=== PATIENT | male | born 1945 | race Caucasian/White ===

== ENCOUNTER → 2018-08-05 | Outpatient (CLI) | payer MEDICARE, OTHER ==
--- NOTE | 2018-08-05 17:05 | Diagnostic Imaging Report ---
TECHNIQUE: Magnetic resonance imaging of the LEFT SHOULDER was performed WITHOUT injected contrast. HISTORY: Injury of muscle, left rotator cuff, pain COMPARISON: None available. FINDINGS: MUSCLES AND TENDONS: Rotator Cuff: Tendons: Supraspinatus and Infraspinatus: The supraspinatus is thickened with heterogeneously increased intrasubstance signal and a small focal low-grade intrasubstance tear of the distal fibers. Thickening and increased intrasubstance signal of the infraspinatus tendon with delamination extending to the myotendinous junction. Teres Minor: Intact Subscapularis: Complex intermediate grade partial-thickness tearing of the distal tendon without complete retraction. Muscles: No focal muscle atrophy. Biceps Tendon: Complex tearing at the biceps labral anchor, no normal tendon is visible within the joint or intertubercular groove, the tendon appears retracted to the level of the proximal humeral diaphysis. GLENOHUMERAL JOINT: Glenoid Labrum: Severe complex tearing of the superior labrum and to a lesser extent the inferior labrum. Articular Cartilage: No focal defect. Joint Fluid: A small nonspecific joint effusion with synovitis. ACROMIOCLAVICULAR JOINT: Moderate hypertrophic degenerative changes of the acromioclavicular joint. Trace effusion. BONE: The acromion is unremarkable. No focal or infiltrative bone marrow replacing abnormality. No acute fracture. SOFT TISSUES: Otherwise, unremarkable. IMPRESSION: 1. Supraspinatus and infraspinatus tendinosis with low-grade partial-thickness tearing. 2. Partial-thickness tearing of the subscapularis tendon. 3. Proximal rupture and distal retraction of the long head of biceps tendon. 4. Degenerative tearing of the glenoid labrum. 5. 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 Signed by: Dr. Christian Zapata D.O., M.M.M. on 08/05/2018 5:02 PM
== END ==
LOC: MRI 14:05
PROVIDERS: ATTEND Specialist
DX: S46.092A Other injury of muscle(s) and tendon(s) of the rotator cuff of left shoulder, initial encounter (principal)

== ENCOUNTER 2018-09-16 16:00 | Outpatient (RCR) | payer MEDICARE, OTHER | END 2018-09-19 | LOC: PT 16:00 | PROVIDERS: ATTEND Specialist | DX: S43.422A Sprain of left rotator cuff capsule, initial encounter (principal); S46.212A Strain of muscle, fascia and tendon of other parts of biceps, left arm, initial encounter; S43.492A Other sprain of left shoulder joint, initial encounter; M25.512 Pain in left shoulder; M62.81 Muscle weakness (generalized) | CPT/HCPCS: 97139 ==

== ENCOUNTER 2018-09-23 16:12 | Outpatient (RCR) | payer MEDICARE, OTHER | END 2018-10-20 | LOC: PT 16:12 | PROVIDERS: ATTEND Specialist | DX: S46.812A Strain of other muscles, fascia and tendons at shoulder and upper arm level, left arm, initial encounter (principal); M75.82 Other shoulder lesions, left shoulder; M25.512 Pain in left shoulder; M62.81 Muscle weakness (generalized) ==

== ENCOUNTER 2021-05-19 16:58 | Outpatient (RCR) | payer MEDICARE, OTHER | END 2021-05-22 | LOC: PT 16:58 | PROVIDERS: ATTEND Specialist | DX: M17.12 Unilateral primary osteoarthritis, left knee (principal) ==

== ENCOUNTER 2021-06-06 17:00 | Outpatient (RCR) | payer MEDICARE, OTHER | END 2021-06-21 | LOC: PT 17:00 | PROVIDERS: ATTEND Specialist | DX: M17.12 Unilateral primary osteoarthritis, left knee (principal); M62.81 Muscle weakness (generalized); R26.89 Other abnormalities of gait and mobility | CPT/HCPCS: 97139 ==

== ENCOUNTER → 2022-06-27 | Outpatient (CLI) | payer MEDICARE, OTHER | LOC: US 10:01 | PROVIDERS: ATTEND Internal Medicine Gastroenterology | DX: R10.10 Upper abdominal pain, unspecified (principal) | CPT/HCPCS: 76700 ==

== ENCOUNTER 2022-11-06 16:01 | Outpatient (RCR) | payer MEDICARE, OTHER ==
[~2022-11-06 16:01] MED LIST: MULTI-VITAMIN1 EACH PO; PENICILLIN PO
== END 2022-11-19 ==
LOC: PT 16:01
PROVIDERS: ATTEND Physician Assistant
DX: Z47.1 Aftercare following joint replacement surgery (principal); Z96.652 Presence of left artificial knee joint

== ENCOUNTER 2022-12-08 15:00 | Outpatient (RCR) | payer MEDICARE, OTHER | END 2022-12-20 | LOC: PT 15:00 | PROVIDERS: ATTEND Physician Assistant | DX: Z47.1 Aftercare following joint replacement surgery (principal); Z96.652 Presence of left artificial knee joint ==

== ENCOUNTER → 2023-01-19 | Outpatient (RCR) | payer MEDICARE, OTHER | LOC: PT 12-22 08:39 | PROVIDERS: ATTEND Physician Assistant | DX: Z47.1 Aftercare following joint replacement surgery (principal); Z96.652 Presence of left artificial knee joint ==